=== PATIENT | male | born 1950 | race African-American/Black ===

== ENCOUNTER 2022-05-16 14:34 | Inpatient (IN) | payer BC ==
[~2022-05-16] VITALS: Ht 182.9 cm; Wt 85.4 kg
[2022-05-16] MEDS ORDERED: ONDANSETRON 4MG ODT PO ONE (15:30)
[2022-05-16] MEDS ORDERED: HYDROCODONE/ACETAMINOPHEN 5/325MG TABLET PO ONE (15:30)
[2022-05-16] MEDS ORDERED: SODIUM CHLORIDE 0.9% 500 ML IV ONE (16:30)
[2022-05-16 18:10] LABS: BASOPHILS % 0.6 % (0.0-2.0); EOSINOPHILS % 4.1 % (0.0-5.0); HEMATOCRIT. 34.7 % (42.0-52.0); HEMOGLOBIN. 11.4 g/dL (14.0-18.0); LYMPHOCYTES % 13.2 % (20.0-50.0); MEAN CORPUSCULAR VOLUME 91.8 fL (80.0-94.0); MEAN PLATELET VOLUME 8.1 fl (7.4-10.4); MONOCYTES % 8.1 % (2.0-8.0); PLATELET 333 x1000/uL (130-400); RED BLOOD CELL COUNT 3.78 mill/uL (4.7-6.1); RED CELL DISTRIBUTION WIDTH 14.6 % (11.6-14.6)
[2022-05-16] MEDS ORDERED: DEXTROSE 50% WATER 50ML SYRINGE IV PRN (18:15)
[2022-05-16] MEDS ORDERED: NITROGLYCERIN 0.4MG TABLET SL SL PRN (18:15)
[2022-05-16] MEDS ORDERED: GUAIFENESIN 200MG/10ML SUGAR FREE UDC PO PRN (18:15)
[2022-05-16] MEDS ORDERED: ZOLPIDEM TARTRATE 5MG TABLET PO PRN (18:15)
[2022-05-16] MEDS ORDERED: TRAMADOL 50MG TABLET PO PRN (18:15)
[2022-05-16] MEDS ORDERED: ACETAMINOPHEN 325MG TABLET PO PRN (18:15)
[2022-05-16] MEDS ORDERED: IPRATROPIUM/ALBUTEROL 0.5-3(2.5)MG/3ML NEB NEB PRN (18:15)
[2022-05-16] MEDS ORDERED: ONDANSETRON HCL 4MG/2ML INJ IV PRN (18:15)
[2022-05-16] MEDS ORDERED: MAGNESIUM/ALUMINUM HYDROXIDE/SIMETHICONE 30ML UDC PO PRN (18:15)
[2022-05-16] MEDS ORDERED: DOCUSATE SODIUM 100MG CAPSULE PO PRN (18:15)
[2022-05-16 18:19] LABS: CHLORIDE 111 mEq/L (98-107)
[2022-05-16 18:30] LABS: CLARITY URINE CLEAR (CLEAR); COLOR URINE YELLOW (YELLOW); KETONES URINE 1+ (NEGATIVE); LEUKOCYTE ESTERASE URINE NEGATIVE (NEGATIVE); NITRITE URINE NEGATIVE (NEGATIVE); OCCULT BLOOD URINE 2+ (NEGATIVE); PROTEIN URINE 2+ (NEGATIVE); SPECIFIC GRAVITY URINE 1.065 (1.005-1.030); UROBILINOGEN URINE 0.2 E.U./dL (0.2-1.0)
[2022-05-16] MEDS ORDERED: NALOXONE HCL 0.4MG/ML VIAL IV PRN (18:30)
[2022-05-16] MEDS ORDERED: SODIUM POLYSTYRENE SULFONATE 15 G/60 ML BOT PO ONE (19:15)
[2022-05-16 19:28] LABS: T4 FREE 1.29 ng/dL (0.76-1.46)
[2022-05-16 19:43] LABS: FOLIC ACID (FOLATE) SERUM 18.4 ng/mL (>5.38)
[2022-05-16 20:00] VITALS: BP_SYST 141; BP_SYST 149; BP_DIAS 91; BP_DIAS 97
[2022-05-16] MEDS ORDERED: ENOXAPARIN 40MG/0.4ML SYR SUBCUT SCH (20:00)
[2022-05-16] MEDS: INSULIN LISPRO 100 UNITS/ML SUBCUT SCH (21:00)
[2022-05-16] MEDS: BLOOD SUGAR DIAGNOSTIC STRIP TEST SCH (21:35)
[2022-05-16] MEDS: CITRIC ACID/SODIUM CITRATE SOLN 15ML UDC PO SCH (23:49)
[2022-05-17] VITALS: BP 159/95
[2022-05-17 00:43] LABS: CREATINE KINASE MB FRACTION 1.5 ng/mL (0.5-3.6)
[2022-05-17] MEDS ORDERED: *PATIENT'S OWN MEDICATION STORAGE XX SCH (01:30)
[2022-05-17 04:00] VITALS: BP 150/98
[2022-05-17] MEDS: BLOOD SUGAR DIAGNOSTIC STRIP TEST SCH ×4 (06:34→21:00)
[2022-05-17 07:37] LABS: BASOPHILS % 0.4 % (0.0-2.0); EOSINOPHILS % 5.9 % (0.0-5.0); HEMATOCRIT. 34.7 % (42.0-52.0); HEMOGLOBIN. 11.5 g/dL (14.0-18.0); LYMPHOCYTES % 16.2 % (20.0-50.0); MEAN CORPUSCULAR HEMOGLOBIN 30.5 pg (28.0-32.0); MEAN CORPUSCULAR VOLUME 92.1 fL (80.0-94.0); MEAN PLATELET VOLUME 7.8 fl (7.4-10.4); NEUTROPHILS % 69.5 % (40.0-76.0); PLATELET 323 x1000/uL (130-400); RED BLOOD CELL COUNT 3.76 mill/uL (4.7-6.1); RED CELL DISTRIBUTION WIDTH 14.5 % (11.6-14.6)
[2022-05-17 07:41] LABS: CHLORIDE 111 mEq/L (98-107); PHOSPHORUS 3.8 mg/dL (2.5-4.9)
[2022-05-17 07:46] LABS: CREATINE KINASE MB FRACTION 1.5 ng/mL (0.5-3.6)
[2022-05-17] MEDS: CITRIC ACID/SODIUM CITRATE SOLN 15ML UDC PO SCH ×3 (08:48→17:33)
[2022-05-17] MEDS: FAMOTIDINE 20MG TABLET PO SCH (08:48)
[2022-05-17] MEDS: INSULIN LISPRO 100 UNITS/ML SUBCUT SCH ×4 (08:49→21:00)
[2022-05-17] MEDS: CLONIDINE 0.1MG TABLET PO PRN (08:54)
[2022-05-17 13:29] LABS: BG CARBOXYHEMOGLOBIN 0.2 % (0.5-1.5); BG DEOXYHEMOGLOBIN 14.6 % (0.0-5.0); BG FRACTION INSPIRED OXYGEN 21; BG HCO3 ACT 21.1 mmol/L (22.0-26.0); BG OXYGEN SATURATION 85.4 % (92.0-98.5); BG OXYHEMOGLOBIN 85.2 % (94.0-97.0); BG PCO2 38.7 mmHg (35.0-45.0); BG PH 7.355 (7.350-7.450); BG PO2 54.6 mmHg (75.0-100.0); BG SAMPLE SITE LEFT RADIAL; BG TOTAL HEMOGLOBIN 11.4 g/dL (12.0-18.0); BG VENT MODE ROOM AIR
[2022-05-17 17:08] LABS: PROTHROMBIN TIME 11.2 sec (9.6-11.0)
[2022-05-17] MEDS: DEXAMETHASONE 4MG/ML 1ML VIAL IV SCH (17:33)
[2022-05-18] VITALS (54 sets, daily range): BP systolic 115–271; BP diastolic 61–266
[2022-05-18] MEDS: DEXAMETHASONE 4MG/ML 1ML VIAL IV SCH ×5 (00:41→23:57)
[2022-05-18] MEDS: INSULIN LISPRO 100 UNITS/ML SUBCUT SCH ×4 (07:04→23:26)
[2022-05-18] MEDS: BLOOD SUGAR DIAGNOSTIC STRIP TEST SCH ×4 (07:04→21:00)
[2022-05-18 07:39] LABS: BASOPHILS % 0.2 % (0.0-2.0); EOSINOPHILS % 0.1 % (0.0-5.0); HEMATOCRIT. 33.6 % (42.0-52.0); HEMOGLOBIN. 11.3 g/dL (14.0-18.0); LYMPHOCYTES % 10.5 % (20.0-50.0); MEAN CORPUSCULAR HEMOGLOBIN 30.7 pg (28.0-32.0); MEAN CORPUSCULAR VOLUME 91.3 fL (80.0-94.0); MONOCYTES % 2.5 % (2.0-8.0); NEUTROPHILS % 86.7 % (40.0-76.0); RED BLOOD CELL COUNT 3.68 mill/uL (4.7-6.1); RED CELL DISTRIBUTION WIDTH 14.5 % (11.6-14.6)
[2022-05-18] MEDS ORDERED: PROPOFOL 10MG/ML 100ML 100 ML IV ONE (07:39)
[2022-05-18 07:58] LABS: PHOSPHORUS 3.6 mg/dL (2.5-4.9)
[2022-05-18] MEDS ORDERED: LIDOCAINE 2%/EPINEPHRINE 1:200,000 20 ML VIAL INJ ONE ×2 (08:10→11:04)
[2022-05-18] MEDS: FAMOTIDINE 20MG TABLET PO SCH (09:00)
[2022-05-18] MEDS: CITRIC ACID/SODIUM CITRATE SOLN 15ML UDC PO SCH ×3 (09:00→16:36)
[2022-05-18] MEDS ORDERED: GENTAMICIN SULF 40MG/ML 2ML VIAL ONE (11:04)
[2022-05-18] MEDS ORDERED: THROMBIN (BOVINE) 5000 UNITS/VIAL TOP ONE (11:04)
[2022-05-18] MEDS ORDERED: MIDAZOLAM HCL 2 MG/2 ML VIAL ONE (11:13)
[2022-05-18] MEDS ORDERED: HYDROMORPHONE HCL/PF 2MG/ML CPJ ONE (11:13)
[2022-05-18] MEDS: NICARDIPINE 100 MG in SODIUM CHLORIDE 0.9% 60 ML IV PRN ×3 (11:19→23:53)
[2022-05-18] MEDS: DEXT 5%/LACTATED RINGERS 1,000 ML IV SCH ×2 (11:25→21:00)
[2022-05-18] MEDS: CEFAZOLIN 1000MG PREMIX 50 ML IV SCH ×2 (13:14→23:26)
[2022-05-18] MEDS: MORPHINE SULFATE 4 MG/ML CPJ (NOT FOR IM USE) IV PRN ×2 (13:16→21:56)
[2022-05-18] MEDS: HYDRALAZINE 20MG/ML VIAL IV PRN ×3 (13:39→21:56)
[2022-05-18] MEDS ORDERED: CEFAZOLIN SODIUM 1000MG/VIAL IV SCH (14:00)
[2022-05-19] VITALS (90 sets, daily range): BP systolic 115–151; BP diastolic 52–98
[2022-05-19] MEDS: HYDRALAZINE 20MG/ML VIAL IV PRN (04:38)
[2022-05-19] MEDS: CLONIDINE 0.1MG TABLET PO PRN (04:38)
[2022-05-19 04:59] LABS: HEMATOCRIT. 35.5 % (42.0-52.0); HEMOGLOBIN. 11.7 g/dL (14.0-18.0); MEAN CORPUSCULAR VOLUME 90.9 fL (80.0-94.0); MEAN PLATELET VOLUME 7.3 fl (7.4-10.4); PLATELET 407 x1000/uL (130-400); RED BLOOD CELL COUNT 3.91 mill/uL (4.7-6.1); RED CELL DISTRIBUTION WIDTH 14.5 % (11.6-14.6)
[2022-05-19 05:12] LABS: PHOSPHORUS 2.4 mg/dL (2.5-4.9)
[2022-05-19] MEDS: BLOOD SUGAR DIAGNOSTIC STRIP TEST SCH ×4 (06:20→21:37)
[2022-05-19] MEDS: INSULIN LISPRO 100 UNITS/ML SUBCUT SCH ×4 (06:30→21:37)
[2022-05-19] MEDS: DEXAMETHASONE 4MG/ML 1ML VIAL IV SCH ×2 (06:30→11:22)
[2022-05-19] MEDS: CEFAZOLIN 1000MG PREMIX 50 ML IV SCH ×3 (06:30→21:40)
[2022-05-19] MEDS: DEXT 5%/LACTATED RINGERS 1,000 ML IV SCH (06:30)
[2022-05-19] MEDS: NICARDIPINE 100 MG in SODIUM CHLORIDE 0.9% 60 ML IV PRN ×2 (08:04→17:42)
[2022-05-19] MEDS: SODIUM CHLORIDE 0.9% 1,000 ML IV SCH ×2 (08:05→17:43)
[2022-05-19] MEDS: FAMOTIDINE 20MG TABLET PO SCH (08:18)
[2022-05-19] MEDS: CITRIC ACID/SODIUM CITRATE SOLN 15ML UDC PO SCH ×3 (08:18→17:42)
[2022-05-19] MEDS: LABETALOL HCL 200MG TABLET PO SCH ×3 (08:53→21:38)
[2022-05-19] MEDS ORDERED: SODIUM PHOS,M-BASIC-D-BASIC 15 MM in DEXT 5% WATER 245 ML IV SCH (11:00)
[2022-05-19 16:36] LABS: PLATELET ESTIMATE INCREASED
[2022-05-20] VITALS (55 sets, daily range): BP systolic 113–158; BP diastolic 67–105
[2022-05-20] MEDS: SODIUM CHLORIDE 0.9% 1,000 ML IV SCH ×2 (04:34→21:12)
[2022-05-20 05:40] LABS: HEMOGLOBIN. 10.7 g/dL (14.0-18.0); MEAN CORPUSCULAR HEMOGLOBIN 29.9 pg (28.0-32.0); MEAN CORPUSCULAR VOLUME 89.7 fL (80.0-94.0); MEAN PLATELET VOLUME 7.2 fl (7.4-10.4); PLATELET 400 x1000/uL (130-400); RED BLOOD CELL COUNT 3.57 mill/uL (4.7-6.1); RED CELL DISTRIBUTION WIDTH 14.5 % (11.6-14.6)
[2022-05-20 06:14] LABS: PHOSPHORUS 3.7 mg/dL (2.5-4.9)
[2022-05-20] MEDS: CEFAZOLIN 1000MG PREMIX 50 ML IV SCH (06:33)
[2022-05-20] MEDS: LABETALOL HCL 200MG TABLET PO SCH ×3 (06:33→21:11)
[2022-05-20] MEDS: BLOOD SUGAR DIAGNOSTIC STRIP TEST SCH ×4 (06:33→20:23)
[2022-05-20] MEDS: INSULIN LISPRO 100 UNITS/ML SUBCUT SCH ×4 (06:35→21:17)
[2022-05-20 08:31] LABS: PLATELET ESTIMATE NORMAL
[2022-05-20] MEDS: CITRIC ACID/SODIUM CITRATE SOLN 15ML UDC PO SCH ×3 (09:59→18:10)
[2022-05-20] MEDS: FAMOTIDINE 20MG TABLET PO SCH (09:59)
[2022-05-20] MEDS: AMLODIPINE 5MG TABLET PO SCH (13:04)
[2022-05-21] VITALS: BP 144/83
[2022-05-21 04:00] VITALS: BP 160/92
[2022-05-21] MEDS: HYDRALAZINE 20MG/ML VIAL IV PRN (04:24)
[2022-05-21] MEDS: BLOOD SUGAR DIAGNOSTIC STRIP TEST SCH ×4 (05:51→21:18)
[2022-05-21] MEDS: LABETALOL HCL 200MG TABLET PO SCH ×3 (06:33→22:12)
[2022-05-21] MEDS: INSULIN LISPRO 100 UNITS/ML SUBCUT SCH ×4 (06:33→22:14)
[2022-05-21 08:10] LABS: BASOPHILS % 0.1 % (0.0-2.0); HEMATOCRIT. 34.7 % (42.0-52.0); HEMOGLOBIN. 11.4 g/dL (14.0-18.0); LYMPHOCYTES % 7.8 % (20.0-50.0); MEAN CORPUSCULAR HEMOGLOBIN 29.9 pg (28.0-32.0); MEAN CORPUSCULAR VOLUME 90.8 fL (80.0-94.0); MEAN PLATELET VOLUME 7.2 fl (7.4-10.4); MONOCYTES % 7.9 % (2.0-8.0); NEUTROPHILS % 84.2 % (40.0-76.0); PLATELET 381 x1000/uL (130-400); RED BLOOD CELL COUNT 3.82 mill/uL (4.7-6.1); RED CELL DISTRIBUTION WIDTH 14.7 % (11.6-14.6)
[2022-05-21 08:13] VITALS: BP 128/73
[2022-05-21 08:48] LABS: PHOSPHORUS 2.4 mg/dL (2.5-4.9)
[2022-05-21] MEDS: FOLIC ACID 1MG TABLET PO SCH (09:03)
[2022-05-21] MEDS: AMLODIPINE 5MG TABLET PO SCH (09:03)
[2022-05-21] MEDS: THIAMINE HCL 100MG TABLET PO SCH (09:03)
[2022-05-21] MEDS: FAMOTIDINE 20MG TABLET PO SCH (09:03)
[2022-05-21] MEDS: CITRIC ACID/SODIUM CITRATE SOLN 15ML UDC PO SCH ×3 (09:04→17:37)
[2022-05-21 12:00] VITALS: BP 143/80
[2022-05-21] MEDS ORDERED: POTASSIUM-SODIUM PHOSPHATE POWDER PACKET PO NR (15:10)
[2022-05-21] MEDS: SODIUM CHLORIDE 0.9% 1,000 ML IV SCH (15:37)
[2022-05-21 16:00] VITALS: BP 146/89
[2022-05-21 20:00] VITALS: BP 156/81
[2022-05-22] VITALS: BP 146/80
[2022-05-22 04:00] VITALS: BP 158/90
[2022-05-22 06:50] LABS: BASOPHILS % 0.1 % (0.0-2.0); EOSINOPHILS % 2.4 % (0.0-5.0); HEMATOCRIT. 33.9 % (42.0-52.0); HEMOGLOBIN. 11.2 g/dL (14.0-18.0); LYMPHOCYTES % 9.5 % (20.0-50.0); MEAN CORPUSCULAR HEMOGLOBIN 30.2 pg (28.0-32.0); MEAN CORPUSCULAR VOLUME 91.5 fL (80.0-94.0); MONOCYTES % 8.6 % (2.0-8.0); NEUTROPHILS % 79.4 % (40.0-76.0); PLATELET 341 x1000/uL (130-400); RED BLOOD CELL COUNT 3.71 mill/uL (4.7-6.1); RED CELL DISTRIBUTION WIDTH 14.5 % (11.6-14.6)
[2022-05-22] MEDS: LABETALOL HCL 200MG TABLET PO SCH ×3 (06:56→21:00)
[2022-05-22] MEDS: BLOOD SUGAR DIAGNOSTIC STRIP TEST SCH ×4 (07:10→21:00)
[2022-05-22] MEDS: INSULIN LISPRO 100 UNITS/ML SUBCUT SCH ×4 (07:10→21:04)
[2022-05-22 07:26] LABS: PHOSPHORUS 2.3 mg/dL (2.5-4.9)
[2022-05-22 08:00] VITALS: BP 118/75
[2022-05-22] MEDS: CITRIC ACID/SODIUM CITRATE SOLN 15ML UDC PO SCH (09:33)
[2022-05-22] MEDS: AMLODIPINE 10MG TABLET PO SCH (09:33)
[2022-05-22] MEDS: FOLIC ACID 1MG TABLET PO SCH (09:34)
[2022-05-22] MEDS: THIAMINE HCL 100MG TABLET PO SCH (09:34)
[2022-05-22] MEDS: FAMOTIDINE 20MG TABLET PO SCH (09:35)
[2022-05-22] MEDS ORDERED: SODIUM PHOS,M-BASIC-D-BASIC 15 MM in DEXT 5% WATER 245 ML IV SCH (11:00)
[2022-05-22 12:00] VITALS: BP 138/86
[2022-05-22 16:00] VITALS: BP 131/88
[2022-05-22 20:00] VITALS: BP 134/80
[2022-05-23] VITALS: BP 138/86
[2022-05-23 04:00] VITALS: BP 124/77
[2022-05-23] MEDS: BLOOD SUGAR DIAGNOSTIC STRIP TEST SCH ×4 (06:43→21:04)
[2022-05-23] MEDS: LABETALOL HCL 200MG TABLET PO SCH ×2 (06:50→21:04)
[2022-05-23] MEDS: INSULIN LISPRO 100 UNITS/ML SUBCUT SCH ×3 (06:51→21:00)
[2022-05-23 07:30] LABS: BASOPHILS % 0.1 % (0.0-2.0); HEMATOCRIT. 34.3 % (42.0-52.0); HEMOGLOBIN. 11.2 g/dL (14.0-18.0); LYMPHOCYTES % 11.1 % (20.0-50.0); MEAN CORPUSCULAR HEMOGLOBIN 29.7 pg (28.0-32.0); MEAN CORPUSCULAR VOLUME 90.8 fL (80.0-94.0); MEAN PLATELET VOLUME 7.2 fl (7.4-10.4); MONOCYTES % 10.8 % (2.0-8.0); PLATELET 307 x1000/uL (130-400); RED BLOOD CELL COUNT 3.78 mill/uL (4.7-6.1); RED CELL DISTRIBUTION WIDTH 14.3 % (11.6-14.6)
[2022-05-23 08:00] VITALS: BP_SYST 106; BP_SYST 119; BP_DIAS 68; BP_DIAS 72
[2022-05-23 08:57] LABS: PHOSPHORUS 2.5 mg/dL (2.5-4.9)
[2022-05-23] MEDS: FOLIC ACID 1MG TABLET PO SCH (09:03)
[2022-05-23] MEDS: AMLODIPINE 10MG TABLET PO SCH (09:03)
[2022-05-23] MEDS: FAMOTIDINE 20MG TABLET PO SCH (09:03)
[2022-05-23] MEDS: THIAMINE HCL 100MG TABLET PO SCH (09:03)
[2022-05-23] MEDS: ACETAMINOPHEN 325MG TABLET PO PRN (10:42)
[2022-05-23 12:00] VITALS: BP 112/66
[2022-05-23 16:00] VITALS: BP 119/67
[2022-05-23 20:00] VITALS: BP 117/91
[2022-05-24] VITALS: BP 107/61
[2022-05-24 04:00] VITALS: BP 105/72
[2022-05-24] MEDS: BLOOD SUGAR DIAGNOSTIC STRIP TEST SCH ×4 (05:56→21:54)
[2022-05-24] MEDS: INSULIN LISPRO 100 UNITS/ML SUBCUT SCH ×4 (05:56→22:14)
[2022-05-24] MEDS: LABETALOL HCL 200MG TABLET PO SCH ×3 (05:56→22:02)
[2022-05-24 06:35] LABS: BASOPHILS % 0.1 % (0.0-2.0); EOSINOPHILS % 6.7 % (0.0-5.0); HEMATOCRIT. 35.1 % (42.0-52.0); HEMOGLOBIN. 11.4 g/dL (14.0-18.0); LYMPHOCYTES % 14.7 % (20.0-50.0); MEAN CORPUSCULAR HEMOGLOBIN 29.6 pg (28.0-32.0); MEAN CORPUSCULAR VOLUME 91.2 fL (80.0-94.0); MEAN PLATELET VOLUME 7.5 fl (7.4-10.4); MONOCYTES % 11.5 % (2.0-8.0); PLATELET 292 x1000/uL (130-400); RED BLOOD CELL COUNT 3.85 mill/uL (4.7-6.1); RED CELL DISTRIBUTION WIDTH 14.4 % (11.6-14.6)
[2022-05-24 08:00] VITALS: BP 118/67
[2022-05-24] MEDS: THIAMINE HCL 100MG TABLET PO SCH (09:36)
[2022-05-24] MEDS: AMLODIPINE 10MG TABLET PO SCH (09:37)
[2022-05-24] MEDS: FAMOTIDINE 20MG TABLET PO SCH (09:37)
[2022-05-24] MEDS: FOLIC ACID 1MG TABLET PO SCH (09:37)
[2022-05-24 10:55] LABS: PHOSPHORUS 2.7 mg/dL (2.5-4.9)
[2022-05-24 12:00] VITALS: BP 128/75
[2022-05-24 16:00] VITALS: BP 114/73
[2022-05-24 20:00] VITALS: BP 145/80
[2022-05-25] VITALS: BP 128/77
[2022-05-25 06:29] LABS: BASOPHILS % 0.1 % (0.0-2.0); EOSINOPHILS % 5.8 % (0.0-5.0); HEMATOCRIT. 33.3 % (42.0-52.0); HEMOGLOBIN. 11.1 g/dL (14.0-18.0); LYMPHOCYTES % 16.4 % (20.0-50.0); MEAN CORPUSCULAR VOLUME 90.3 fL (80.0-94.0); MEAN PLATELET VOLUME 7.7 fl (7.4-10.4); MONOCYTES % 13.4 % (2.0-8.0); NEUTROPHILS % 64.3 % (40.0-76.0); PLATELET 307 x1000/uL (130-400); RED BLOOD CELL COUNT 3.69 mill/uL (4.7-6.1); RED CELL DISTRIBUTION WIDTH 14.8 % (11.6-14.6)
[2022-05-25] MEDS: BLOOD SUGAR DIAGNOSTIC STRIP TEST SCH ×4 (06:49→20:53)
[2022-05-25] MEDS: INSULIN LISPRO 100 UNITS/ML SUBCUT SCH ×4 (06:49→20:58)
[2022-05-25] MEDS: LABETALOL HCL 200MG TABLET PO SCH ×3 (06:53→20:58)
[2022-05-25 08:00] VITALS: BP 112/74
[2022-05-25 08:16] LABS: PHOSPHORUS 2.7 mg/dL (2.5-4.9)
[2022-05-25] MEDS: THIAMINE HCL 100MG TABLET PO SCH (09:08)
[2022-05-25] MEDS: FAMOTIDINE 20MG TABLET PO SCH (09:08)
[2022-05-25] MEDS: AMLODIPINE 10MG TABLET PO SCH (09:08)
[2022-05-25] MEDS: FOLIC ACID 1MG TABLET PO SCH (09:08)
[2022-05-25 12:00] VITALS: BP 110/68
[2022-05-25 16:00] VITALS: BP 114/73
[2022-05-25 20:00] VITALS: BP 113/71
[2022-05-26] VITALS: BP 117/75
[2022-05-26 04:00] VITALS: BP 121/77
[2022-05-26] MEDS: LABETALOL HCL 200MG TABLET PO SCH (04:53)
[2022-05-26] MEDS: INSULIN LISPRO 100 UNITS/ML SUBCUT SCH ×5 (05:24→21:00)
[2022-05-26] MEDS: BLOOD SUGAR DIAGNOSTIC STRIP TEST SCH ×4 (05:24→21:53)
[2022-05-26 08:00] VITALS: BP 103/71
[2022-05-26 08:10] LABS: BASOPHILS % 0.3 % (0.0-2.0); HEMATOCRIT. 32.7 % (42.0-52.0); HEMOGLOBIN. 10.8 g/dL (14.0-18.0); LYMPHOCYTES % 19.3 % (20.0-50.0); MEAN CORPUSCULAR HEMOGLOBIN 29.8 pg (28.0-32.0); MEAN CORPUSCULAR VOLUME 90.4 fL (80.0-94.0); MEAN PLATELET VOLUME 7.5 fl (7.4-10.4); MONOCYTES % 11.6 % (2.0-8.0); NEUTROPHILS % 64.8 % (40.0-76.0); PLATELET 310 x1000/uL (130-400); RED BLOOD CELL COUNT 3.61 mill/uL (4.7-6.1); RED CELL DISTRIBUTION WIDTH 14.5 % (11.6-14.6)
[2022-05-26 08:43] LABS: PHOSPHORUS 2.5 mg/dL (2.5-4.9)
[2022-05-26] MEDS: AMLODIPINE 10MG TABLET PO SCH ×2 (09:00→17:40)
[2022-05-26] MEDS: FAMOTIDINE 20MG TABLET PO SCH (09:55)
[2022-05-26] MEDS: FOLIC ACID 1MG TABLET PO SCH (09:55)
[2022-05-26] MEDS: THIAMINE HCL 100MG TABLET PO SCH (09:55)
[2022-05-26] MEDS: ACETAMINOPHEN 325MG TABLET PO PRN (10:35)
[2022-05-26 12:00] VITALS: BP 101/71
[2022-05-26] MEDS: LACTULOSE 20G/30ML UDC PO SCH ×3 (14:01→21:00)
[2022-05-26 16:00] VITALS: BP 140/71
[2022-05-26 20:00] VITALS: BP 138/78
[2022-05-27] VITALS: BP 120/70
[2022-05-27 04:00] VITALS: BP 133/68
[2022-05-27] MEDS: INSULIN LISPRO 100 UNITS/ML SUBCUT SCH (06:18)
[2022-05-27] MEDS: BLOOD SUGAR DIAGNOSTIC STRIP TEST SCH (06:18)
[2022-05-27 07:28] LABS: BASOPHILS % 0.2 % (0.0-2.0); EOSINOPHILS % 3.4 % (0.0-5.0); HEMATOCRIT. 33.6 % (42.0-52.0); HEMOGLOBIN. 11.3 g/dL (14.0-18.0); LYMPHOCYTES % 14.8 % (20.0-50.0); MEAN CORPUSCULAR HEMOGLOBIN 30.1 pg (28.0-32.0); MEAN CORPUSCULAR VOLUME 89.5 fL (80.0-94.0); MEAN PLATELET VOLUME 7.3 fl (7.4-10.4); MONOCYTES % 9.8 % (2.0-8.0); NEUTROPHILS % 71.8 % (40.0-76.0); PLATELET 361 x1000/uL (130-400); RED BLOOD CELL COUNT 3.75 mill/uL (4.7-6.1); RED CELL DISTRIBUTION WIDTH 14.4 % (11.6-14.6)
[2022-05-27 07:51] LABS: PHOSPHORUS 2.7 mg/dL (2.5-4.9)
[2022-05-27 08:00] VITALS: BP 136/84
[2022-05-27] MEDS ORDERED: POLYETHYLENE GLYCOL 3350 (17GM) 1 DOSE PACK PO SCH (09:00)
[2022-05-27] MEDS: THIAMINE HCL 100MG TABLET PO SCH (09:26)
[2022-05-27] MEDS: FAMOTIDINE 20MG TABLET PO SCH (09:26)
[2022-05-27] MEDS: FOLIC ACID 1MG TABLET PO SCH (09:26)
[2022-05-27] MEDS ORDERED: CARVEDILOL 3.125 MG TABLET PO SCH (09:45)
[2022-05-27] MEDS: ACETAMINOPHEN 325MG TABLET PO PRN (09:47)
[2022-05-27 12:01] VITALS: BP 138/85
== END 2022-05-27 12:45 | disposition home health service (06) | DRG 471 ==
LOC: ER 15:51 → 6EST 17:20 → EDBEDREQTM 17:45 → EDBEDREQ 17:45 → ENRESERV 17:48 → SUPCPDRO 18:06 → MICUSO 05-18 10:38 → 7EST 05-20 16:25
PROVIDERS: ADMIT Internal Medicine; ATTEND Internal Medicine
PROC: 0RG2071 Fusion of 2 or more Cervical Vertebral Joints with Autologous Tissue Substitute, Posterior Approach, Posterior Column, Open Approach (ICD-10-PCS; principal; 2022-05-18)
PROC: 01N10ZZ Release Cervical Nerve, Open Approach (ICD-10-PCS; 2022-05-18)
DX: M48.02 Spinal stenosis, cervical region (principal); G82.50 Quadriplegia, unspecified; N17.0 Acute kidney failure with tubular necrosis; G93.41 Metabolic encephalopathy; E87.2 Acidosis; E44.1 Mild protein-calorie malnutrition; M47.12 Other spondylosis with myelopathy, cervical region; I69.359 Hemiplegia and hemiparesis following cerebral infarction affecting unspecified side; E87.5 Hyperkalemia; D63.8 Anemia in other chronic diseases classified elsewhere; Y90.9 Presence of alcohol in blood, level not specified; Z20.822 Contact with and (suspected) exposure to COVID-19; I12.9 Hypertensive chronic kidney disease with stage 1 through stage 4 chronic kidney disease, or unspecified chronic kidney disease; E11.22 Type 2 diabetes mellitus with diabetic chronic kidney disease; N18.30 Chronic kidney disease, stage 3 unspecified; R29.6 Repeated falls; E78.5 Hyperlipidemia, unspecified; I16.0 Hypertensive urgency; F10.20 Alcohol dependence, uncomplicated; R13.10 Dysphagia, unspecified; F17.210 Nicotine dependence, cigarettes, uncomplicated; Z79.4 Long term (current) use of insulin; Z79.899 Other long term (current) drug therapy; Z82.49 Family history of ischemic heart disease and other diseases of the circulatory system; Z83.3 Family history of diabetes mellitus; Z90.49 Acquired absence of other specified parts of digestive tract; Z68.25 Body mass index [BMI] 25.0-25.9, adult
CPT/HCPCS: 36415; 36600; 70551; 71045; 72040; 72141; 73521; 73552; 73562; 73630; 76000; 76770; 80048; 80053; 80061; 81003; 82375; 82550; 82553; 82607; 82746; 82805; 82962; 83036; 83540; 83550; 83735; 84100; 84145; 84439; 84443; 84484; 85025; 87426; 88304; 88311; 92610; 93005; 93306; 93970; 97116; 97162; 97166; 97530; 97535; 99285; C1713; J0360; J0690; J1100; J1170; J1580; J1650; J1815; J2250; J2270; J2704; J3490; J7030; J7040; J7050; J7060; J7121; L0172